=== PATIENT | female | born 1980 | race Caucasian/White ===

== ENCOUNTER 2024-05-25 11:40 | Day surgery (SDC) | payer OTHER ==
[2024-05-24 14:21] VITALS: BMI 31.4
[2024-05-25 12:15] VITALS: RESP 18; TEMP 98.2
[2024-05-25 13:43] VITALS: BP 119/66; PULSE 83
== END 2024-05-25 13:47 | disposition home or self-care (01) ==
LOC: FASU-ENDO 11:40
PROVIDERS: ATTEND Internal Medicine Gastroenterology
PROC: 0DJD8ZZ Inspection of Lower Intestinal Tract, Via Natural or Artificial Opening Endoscopic (ICD-10-PCS; principal; 2024-05-25 12:51)
DX: K64.1 Second degree hemorrhoids (principal); K64.8 Other hemorrhoids; Z80.0 Family history of malignant neoplasm of digestive organs
CPT/HCPCS: 81025